=== PATIENT | female | born 2000 | race Two or more races ===

== ENCOUNTER 2025-03-19 09:58 | Inpatient (IN) | payer MEDICAID ==
[~2025-03-19] VITALS: Ht 162.6 cm; Wt 81.0 kg
--- NOTE | 2025-03-19 10:14 | ED.PDOC ---
History of Present Illness HPI Comments 24-year-old female with a history of alcohol dependence brought in by self complaining of alcohol withdrawal symptoms, characterized by shakiness, nausea and vomiting, associated with initially bright red, then brown emesis and epigastric pain. Patient states symptoms have been going on for the last 12 hours. Her last drink was around 1600 yesterday. She states typically she drinks a 5th of hard liquor daily, and has been doing so for the last 2 weeks. She denies any fever, diarrhea, urinary symptoms, or seizure. 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 Dry mucous membranes.) Neck: Full Range of Motion, Normal Inspection Respiratory: Lungs Clear, No Accessory Muscle Use, No Respiratory Distress, Normal Breath Sounds Cardiovascular: No Edema, No JVD, Tachycardia Breast Exam: Deferred Gastrointestinal: Epigastric, Soft, Tenderness Genitalia: Deferred Pelvic: Deferred Rectal: Deferred Extremities: Normal inspection, Normal range of motion, Non-tender, No pedal edema Neurologic: Alert (Oriented x4), Normal Affect, Normal Mood, Other (Ambulatory) Cerebellar Function: Tremor Reflexes: NOT DONE Skin: NOT DONE Lymphatic: NOT DONE Was a procedure done? Was a procedure done?: No Differential Dx Considerations may include: Alcohol withdrawal, electrolyte imbalance, dehydration/hypovolemia, gastritis, ulcer disease, pancreatitis, biliary tract disease, colitis, diverticular disease, UTI, among others X-Ray, Labs, Meds, VS Vital Signs Date Time Temp Pulse Resp B/P (MAP) Pulse Ox O2 Delivery O2 Flow Rate FiO2 03/19/25 15:00 85 16 136/79 (98) 98 03/19/25 13:15 85 18 99 Room Air 03/19/25 13:15 98.1 85 18 133/86 (102) 99 98.1 03/19/25 10:25 84 19 98 Room Air* 0 21 03/19/25 10:25 97.9 84 15 144/86 (105) 99 97.9 03/19/25 10:05 97.4 92 20 155/98 (117) 100 97.4 Lab Test 03/19/25 11:22 03/19/25 10:36 03/19/25 10:25 Range/Units Troponin I High Sensitivity < 3 L < 3 L </=34 ng/L Plasma/Serum Blood Alcohol 4.7 <10 mg/dL White Blood Count 7.2 4.4-10.8 10^3/uL Red Blood Count 4.09 4.0-5.20 10^6/uL Hemoglobin 13.6 12.2-16.2 g/dL Hematocrit 39.6 36.0-46.0 % Mean Corpuscular Volume 96.8 80.0-100.0 fL Mean Corpuscular Hemoglobin 33.2 H 28.0-32.0 pg Mean Corpuscular Hemoglobin Concent 34.3 32.0-36.0 g/dL Red Cell Distribution Width 15.9 H 11.8-14.3 % Platelet Count 313 140-450 10^3/uL Mean Platelet Volume 8.2 6.9-10.8 fL Neutrophils (%) (Auto) 81.5 H 37.0-80.0 % Lymphocytes (%) (Auto) 15.2 10.0-50.0 % Monocytes (%) (Auto) 2.7 0.0-12.0 % Eosinophils (%) (Auto) 0.1 0.0-7.0 % Basophils (%) (Auto) 0.5 0.0-2.0 % Neutrophils # (Auto) 5.9 1.6-8.6 10 ^3/uL Lymphocytes # (Auto) 1.1 0.4-5.4 10 ^3/uL Monocytes # (Auto) 0.2 0-1.3 10 ^3/uL Eosinophils # (Auto) 0 0-0.8 10 ^3/uL Basophils # (Auto) 0 0-0.2 10 ^3/uL Nucleated Red Blood Cells 0.0 % Sodium Level 140 136-145 mmol/L Potassium Level 3.5 3.5-5.1 mmol/L Chloride Level 103 98-107 mmol/L Carbon Dioxide Level 26 20-31 mmol/L Anion Gap 11 5-15 Blood Urea Nitrogen 9 9-23 mg/dL Creatinine 0.67 0.550-1.02 mg/dL Glomerular Filtration Rate Calc 124 >90 mL/min BUN/Creatinine Ratio 13.4 10.0-20.0 Serum Glucose 111 H 74-106 mg/dL Calcium Level 8.9 8.7-10.4 mg/dL Total Bilirubin 0.6 0.2-1.0 mg/dL Aspartate Amino Transferase (AST) 42 H 13-40 U/L Alanine Aminotransferase (ALT) 60 H 7-40 U/L Alkaline Phosphatase 64 46-116 U/L Total Protein 7.3 5.7-8.2 g/dL Albumin 4.8 3.2-4.8 g/dL Lipase 43 12-53 U/L Beta HCG, Quantitative 0.5 L 1.5-4.2 mIU/mL Urine Color Yellow Yellow Urine Clarity Turbid H Clear Urine pH 8.5 5.0-9.0 Urine Specific [place] 1.027 1.001-1.035 Urine Protein 2+ H Negative Urine Ketones Negative Negative Urine Blood 2+ H Negative /uL Urine Nitrite Negative Negative Urine Bilirubin Negative Negative Urine Urobilinogen Normal Negative mg/dL Urine Leukocyte Esterase 1+ Negative /uL Urine RBC 6 0 - 4 /hpf Urine Microscopic WBC 9 H 0-5 /HPF Urine Squamous Epithelial Cells Many <5 /hpf Urine Bacteria Few H None Seen /hpf Urine Mucus Few None Seen Urine Glucose Normal Normal mg/dL Urine Opiates Screen Neg NEGATIVE Urine Fentanyl Screen Neg NEGATIVE Urine Barbiturates Screen Neg NEGATIVE Urine Phencyclidine Screen Neg NEGATIVE Urine Amphetamines Screen Neg NEGATIVE Urine Benzodiazepines Screen Neg NEGATIVE Urine Cocaine Screen Neg NEGATIVE Urine Cannabinoids Screen Neg NEGATIVE Current Medications Medications (Trade) Dose Ordered Sig/Juan Ramon Route Start Time Stop Time Status Last Admin Sodium Chloride 2,000 ml @ 1,000 mls/hr Q2H ONCE IV 03/19/25 10:15 03/19/25 12:14 DC 03/19/25 10:44 Ondansetron HCl (Zofran) 4 mg ONCE ONCE IV 03/19/25 10:15 03/19/25 10:17 DC 03/19/25 10:43 Pantoprazole Sodium (Protonix) 40 mg ONCE ONCE IV 03/19/25 10:15 03/19/25 10:17 DC 03/19/25 10:43 Lorazepam (Ativan Inj) 1 mg ONCE ONCE IV 03/19/25 10:15 03/19/25 10:17 DC 03/19/25 10:43 Chlordiazepoxide HCl (Librium Capsule) 50 mg ONCE ONCE PO 03/19/25 10:15 03/19/25 10:17 DC 03/19/25 10:43 Ceftriaxone Sodium 50 ml @ 100 mls/hr ONCE ONCE IV 03/19/25 12:00 03/19/25 12:29 DC 03/19/25 12:09 PROCEDURE(s): ABPL - CT AB PEL WO CON-NO ORAL OR IV REASON: epig pain, hematemesis ORDER NUMBER(s): [id number], ACCESSION NUMBER(s): [id number] EXAM: CT Abdomen and Pelvis Without Intravenous Contrast CLINICAL INDICATION: epig pain, hematemesis TECHNIQUE: Axial computed tomography images of the abdomen and pelvis without intravenous contrast. This CT exam was performed using one or more of the following dose reduction techniques: automated exposure control, adjustment of the mA and/or kV according to patient size, and/or use of iterative reconstruction technique. CONTRAST: RADIATION DOSE: CTDIvol = 12.28 mGy, DLP = 642.7 mGy-cm COMPARISON: None FINDINGS: LUNG BASES: Unremarkable. No mass. No consolidation. ABDOMEN: LIVER: Fatty infiltration of the liver. GALLBLADDER AND BILE DUCTS: Unremarkable. No calcified stones. No ductal dilation. PANCREAS: Unremarkable. No ductal dilation. SPLEEN: Unremarkable. No splenomegaly. ADRENALS: Unremarkable. No mass. KIDNEYS AND URETERS: Unremarkable. No stones within either kidney. No hydronephrosis. STOMACH AND BOWEL: Unremarkable. No obstruction. No mucosal thickening. PELVIS: APPENDIX: Normal appendix. BLADDER: Unremarkable. No stones. REPRODUCTIVE: Unremarkable as visualized. ABDOMEN and PELVIS: INTRAPERITONEAL SPACE: Unremarkable. No free air. No significant fluid collection. BONES/JOINTS: No acute fracture. No dislocation. SOFT TISSUES: Umbilical hernia containing fat. VASCULATURE: Unremarkable. No abdominal aortic aneurysm. LYMPH NODES: Unremarkable. No enlarged lymph nodes. OTHER FINDINGS: . . IMPRESSION: 1. Normal appendix. 2. Umbilical hernia containing fat. 3. No obstructive uropathy. X-Ray, Labs, Meds, VS Comment 24-year-old female with a history of alcohol dependence presenting complaining of alcohol withdrawal symptoms, epigastric pain, bright red than dark brown emesis, associated with epigastric pain Vitals remarkable for hypertension and tachycardia Exam remarkable for tachycardia and tremors, epigastric tenderness Rhythm strip independently interpreted by me: Sinus tach, rate 110, no ectopy. CT abdomen and pelvis IMPRESSION: 1. Normal appendix. 2. Umbilical hernia containing fat. 3. No obstructive uropathy. CBC unremarkable, CMP remarkable for AST 42, ALT 60, lipase normal, UA abnormal consistent with possible UTI, hCG negative, alcohol and drug screen pending Patient treated with the following in the ED: 2 L 0.9 normal saline IV bolus, Zofran 4 mg IV, Protonix 40 mg IV, Ativan 2 mg IV, Librium 50 mg p.o., Rocephin 1 g IV On re-evaluation, symptoms improving. Vitals stable. No emesis in ED. Plan is to admit the patient for alcohol withdrawal and GI evaluation. Time of 1ST Reevaluation: 11:14 Reevaluation 1ST: Improved Patient Education/Counseling: Diagnosis, Treatment Family Education/Counseling: No Family Present Departure 1 Departure Time of Disposition: 11:55 Impression: Primary Impression: Alcohol withdrawal Qualified Codes: F10.939 - Alcohol use, unspecified with withdrawal, unspecified Additional Impressions: Hematemesis/vomiting blood Qualified Codes: K92.0 - Hematemesis UTI (urinary tract infection) Qualified Codes: N39.0 - Urinary tract infection, site not specified Disposition: ADMITTED INPATIENT Admit to: Tele Condition: Guarded Critical Care Note Critical Care Time?: No Stability Stability form required: No Heart Score Heart Score: Heart Score Response (Comments) Value History N/A 0 EKG N/A 0 Age N/A 0 Risk Factors N/A 0 Troponin N/A 0 Total 0 OLEG MCLEOD MD March 19, 2025 10:14
[2025-03-19 10:25] VITALS: PULSE 84; RESP 19; O2SAT 98
[2025-03-19] MEDS: chlordiazePOXIDE HCL 25 MG CAP PO ONE (10:43)
[2025-03-19] MEDS: LORazepam 2MG/ML-1ML VIAL IV ONE (10:43)
[2025-03-19] MEDS: PANTOPRAZOLE 40 MG/10 ML VIAL INJ IV ONE (10:43)
[2025-03-19] MEDS: ONDANSETRON HCL 4 MG/2 ML VIAL IV ONE (10:43)
[2025-03-19] MEDS: SODIUM CHLORIDE 0.9% 2,000 ML IV ONE (10:44)
[2025-03-19 11:05] LABS: Basophils # (auto) 0 10 ^3/uL (0-0.2); Basophils % (auto) 0.5 % (0.0-2.0); Eosinophils # (auto) 0 10 ^3/uL (0-0.8); Eosinophils % (auto) 0.1 % (0.0-7.0); Hematocrit 39.6 % (36.0-46.0); Hemoglobin 13.6 g/dL (12.2-16.2); Lymphocytes # (auto) 1.1 10 ^3/uL (0.4-5.4); Lymphocytes % (auto) 15.2 % (10.0-50.0); Mean Corpuscular Hemoglobin 33.2 pg (28.0-32.0); Mean Corpuscular Hgb Conc. 34.3 g/dL (32.0-36.0); Mean Corpuscular Volume 96.8 fL (80.0-100.0); Monocytes # (auto) 0.2 10 ^3/uL (0-1.3); Monocytes % (auto) 2.7 % (0.0-12.0); Neutrophils # (auto) 5.9 10 ^3/uL (1.6-8.6); Neutrophils % (auto) 81.5 % (37.0-80.0); Platelet Count (auto) 313 10^3/uL (140-450); Red Blood Cells 4.09 10^6/uL (4.0-5.20); Red Cell Distribution Width 15.9 % (11.8-14.3); White Blood Cell 7.2 10^3/uL (4.4-10.8)
[2025-03-19 11:22] LABS: Albumin 4.8 g/dL (3.2-4.8); Alkaline Phosphatase 64 U/L (46-116); Anion Gap 11 (5-15); BUN/Creatinine Ratio 13.4 (10.0-20.0); Bilirubin, Total 0.6 mg/dL (0.2-1.0); Calcium 8.9 mg/dL (8.7-10.4); Carbon Dioxide 26 mmol/L (20-31); Chloride 103 mmol/L (98-107); Lipase 43 U/L (12-53); Potassium 3.5 mmol/L (3.5-5.1); Sodium 140 mmol/L (136-145); Total Protein 7.3 g/dL (5.7-8.2)
[2025-03-19 11:23] LABS: Alanine Aminotransferase 60 U/L (7-40); Aspartate Aminotransferase 42 U/L (13-40); Blood Urea Nitrogen 9 mg/dL (9-23); Glucose 111 mg/dL (74-106)
[2025-03-19 11:30] LABS: Urine Bacteria FEW /hpf (None Seen); Urine Blood 2+ /uL (Negative); Urine Clarity Turbid (Clear); Urine Color Yellow (Yellow); Urine Mucus FEW (None Seen); Urine Protein, UAD 2+ (Negative); Urine Specific Gravity 1.027 (1.001-1.035); Urine Squamous Epithelial Cell MANY /hpf (<5); Urine Urobilinogen Normal (Negative); Urine WBC 9 /HPF (0-5); Urine pH 8.5 (5.0-9.0)
[2025-03-19] MEDS: cefTRIAXone 1GM/50ML D5W 50 ML IV ONE (12:09)
--- NOTE | 2025-03-19 12:18 | DVH ---
EXAM: CT Abdomen and Pelvis Without Intravenous Contrast CLINICAL INDICATION: epig pain, hematemesis TECHNIQUE: Axial computed tomography images of the abdomen and pelvis without intravenous contrast. This CT exam was performed using one or more of the following dose reduction techniques: automated exposure control, adjustment of the mA and/or kV according to patient size, and/or use of iterative r econstruction technique. CONTRAST: RADIATION DOSE: CTDIvol = 12.28 mGy, DLP = 642.7 mGy-cm COMPARISON: None FINDINGS: LUNG BASES: Unremarkable. No mass. No consolidation. ABDOMEN: LIVER: Fatty infiltration of the liver. GALLBLADDER AND BILE DUCTS: Unremarkable. No calcified stones. No ductal dilation. PANCREAS: Unremarkable. No ductal dilation. SPLEEN: Unremarkable. No splenomegaly. ADRENALS: Unremarkable. No mass. KIDNEYS AND URETERS: Unremarkable. No stones within either kidney. No hydronephrosis. STOMACH AND BOWEL: Unremarkable. No obstruction. No mucosal thickening. PELVIS: APPENDIX: Normal appendix. BLADDER: Unremarkable. No stones. REPRODUCTIVE: Unremarkable as visualized. ABDOMEN and PELVIS: INTRAPERITONEAL SPACE: Unremarkable. No free air. No significant fluid collection. BONES/JOINTS: No acute fracture. No dislocation. SOFT TISSUES: Umbilical hernia containing fat. VASCULATURE: Unremarkable. No abdominal aortic aneurysm. LYMPH NODES: Unremarkable. No enlarged lymph nodes. OTHER FINDINGS: . . IMPRESSION: 1. Normal appendix. 2. Umbilical hernia containing fat. 3. No obstructive uropathy.
[2025-03-19 12:44] LABS: Cannabinoid Screen, Urine Neg (NEGATIVE)
[2025-03-19 12:45] LABS: Amphetamine Screen, Urine Neg (NEGATIVE); Barbiturate Scree,Urine Neg (NEGATIVE); Benzodiazephine Screen, Urine Neg (NEGATIVE); Cocaine Screen, Urine Neg (NEGATIVE); Opiate Scree,Urine Neg (NEGATIVE); Phencyclidine Screen, Urine Neg (NEGATIVE)
--- NOTE | 2025-03-19 14:01 | DVHHP2 ---
History of Present Illness Reason for Visit: etoh abuse History of Present Illness 24 yr old female pmh etoh use and tonsillectomy cc here for etoh dependence, etoh withdrawal, symptoms, patient has some shakiness nausea vomiting she had some bright blood in her emesis she also complain of epigastric pain. Patient states she is drinking pretty heavy daily her last drink was yesterday around 4:00 p.m.. She states she takes a fifth of liquor daily. She states the pain in her epigastric areas like a burning pain no chest pain no shortness with the breath she denies any diarrhea no chest pain no shortness with the breath when evaluating patient's labs and imaging from ED ceftriaxone was given Librium Ativan Protonix Zofran normal saline CBC was unremarkable glucose was 111 AST was 42 ALT was 60 troponin was negative beta quant was negative urine drug screen was negative alcohol level was negative UA with a few bacteria and blood with these findings we will admit for alcohol withdrawals Past Medical History see hpi above Past Surgical History see hpi above Family History Reviewed, non-contributory to the management of this case. Past Social History last drink completed yesterday at 1600, denies drug use or smoking Review of Systems Constitutional: No: Fever, Chills, Sweats, Weakness, Malaise, Other Eyes: No: Pain, Vision change, Conjunctivae inflammation, Eyelid inflammation, Other, Redness ENT: No: Ear pain, Ear discharge, Nose pain, Nose discharge, Nose congestion, Mouth pain, Mouth swelling, Throat pain, Throat swelling, Other Respiratory: No: Cough, Dry, Shortness of breath, SOB with excertion, Wheezing, Hemoptysis, Pleuritic Pain, Sputum, Wheezing, Other Cardiovascular: No: Chest Pain, Palpitations, Orthopnea, Paroxysmal Noc. Dyspnea, Edema, Lt Headedness, Other Gastrointestinal: No: Nausea, Vomiting, Abdominal Pain, Diarrhea, Constipation, Melena, Hematochezia, Other Genitourinary: No Dysuria, No Frequency, No Incontinence, No Hematuria, No Retention, No Other Musculoskeletal: No: other, neck pain, shoulder pain, arm pain, back pain, hand pain, leg pain, foot pain Skin: No: Rash, Lesions, Jaundice, Bruising, Other Neurological: No: Weakness, Numbness, Incoordination, Change in speech, Confusion, Seizures, Other Allergies: Coded Allergies: NO KNOWN ALLERGIES (Unverified , 03/19/25) Exam Vital Signs Vital Signs Date Time Temp Pulse Resp B/P (MAP) Pulse Ox O2 Delivery O2 Flow Rate FiO2 03/19/25 13:15 85 18 99 Room Air 03/19/25 13:15 98.1 133/86 (102) 98.1 03/19/25 10:25 0 21 General Appearance: Alert, Oriented X3, Cooperative, No acute distress HEENT: Atraumatic, PERRLA, EOMI, Mucous membr. moist/pink Respiratory: Clear to auscultation, Normal air movement Cardiovascular: Regular rate, Normal S1, Normal S2, No murmurs Abdominal: Normal bowel sounds, Soft, No tenderness, No hepatospenomegaly Extremities: No clubbing, No cyanosis, No edema, Normal pulses, No tenderness/swelling Skin: No rashes, No breakdown, No significant lesion Neuro: Normal gait, Normal speech, Strength at 5/5 X4 ext, Normal tone, Sensation intact, Cranial nerves 3-12 NL Psych/Mental Status: Mental status NL, Mood NL Labs/Xrays CT scan of the abdomen pelvis unremarkable just shows umbilical fat I reviewed labs, imaging CT scan abdomen pelvis, EKG and all diagnostic studies on this patient from ED records and the medical chart Labs Test 03/19/25 11:22 03/19/25 10:36 03/19/25 10:25 Range/Units Troponin I High Sensitivity < 3 L </=34 ng/L Plasma/Serum Blood Alcohol 4.7 <10 mg/dL White Blood Count 7.2 4.4-10.8 10^3/uL Red Blood Count 4.09 4.0-5.20 10^6/uL Hemoglobin 13.6 12.2-16.2 g/dL Hematocrit 39.6 36.0-46.0 % Mean Corpuscular Volume 96.8 80.0-100.0 fL Mean Corpuscular Hemoglobin 33.2 H 28.0-32.0 pg Mean Corpuscular Hemoglobin Concent 34.3 32.0-36.0 g/dL Red Cell Distribution Width 15.9 H 11.8-14.3 % Platelet Count 313 140-450 10^3/uL Mean Platelet Volume 8.2 6.9-10.8 fL Neutrophils (%) (Auto) 81.5 H 37.0-80.0 % Lymphocytes (%) (Auto) 15.2 10.0-50.0 % Monocytes (%) (Auto) 2.7 0.0-12.0 % Eosinophils (%) (Auto) 0.1 0.0-7.0 % Basophils (%) (Auto) 0.5 0.0-2.0 % Neutrophils # (Auto) 5.9 1.6-8.6 10 ^3/uL Lymphocytes # (Auto) 1.1 0.4-5.4 10 ^3/uL Monocytes # (Auto) 0.2 0-1.3 10 ^3/uL Eosinophils # (Auto) 0 0-0.8 10 ^3/uL Basophils # (Auto) 0 0-0.2 10 ^3/uL Nucleated Red Blood Cells 0.0 % Sodium Level 140 136-145 mmol/L Potassium Level 3.5 3.5-5.1 mmol/L Chloride Level 103 98-107 mmol/L Carbon Dioxide Level 26 20-31 mmol/L Anion Gap 11 5-15 Blood Urea Nitrogen 9 9-23 mg/dL Creatinine 0.67 0.550-1.02 mg/dL Glomerular Filtration Rate Calc 124 >90 mL/min BUN/Creatinine Ratio 13.4 10.0-20.0 Serum Glucose 111 H 74-106 mg/dL Calcium Level 8.9 8.7-10.4 mg/dL Total Bilirubin 0.6 0.2-1.0 mg/dL Aspartate Amino Transferase (AST) 42 H 13-40 U/L Alanine Aminotransferase (ALT) 60 H 7-40 U/L Alkaline Phosphatase 64 46-116 U/L Total Protein 7.3 5.7-8.2 g/dL Albumin 4.8 3.2-4.8 g/dL Lipase 43 12-53 U/L Beta HCG, Quantitative 0.5 L 1.5-4.2 mIU/mL Urine Color Yellow Yellow Urine Clarity Turbid H Clear Urine pH 8.5 5.0-9.0 Urine Specific [place] 1.027 1.001-1.035 Urine Protein 2+ H Negative Urine Ketones Negative Negative Urine Blood 2+ H Negative /uL Urine Nitrite Negative Negative Urine Bilirubin Negative Negative Urine Urobilinogen Normal Negative mg/dL Urine Leukocyte Esterase 1+ Negative /uL Urine RBC 6 0 - 4 /hpf Urine Microscopic WBC 9 H 0-5 /HPF Urine Squamous Epithelial Cells Many <5 /hpf Urine Bacteria Few H None Seen /hpf Urine Mucus Few None Seen Urine Glucose Normal Normal mg/dL Urine Opiates Screen Neg NEGATIVE Urine Fentanyl Screen Neg NEGATIVE Urine Barbiturates Screen Neg NEGATIVE Urine Phencyclidine Screen Neg NEGATIVE Urine Amphetamines Screen Neg NEGATIVE Urine Benzodiazepines Screen Neg NEGATIVE Urine Cocaine Screen Neg NEGATIVE Urine Cannabinoids Screen Neg NEGATIVE Assessment/Plan Assessment/Plan acute etoh withdrawal last use yesterday at 1600 ordered Librium taper ordered Ativan as needed ordered Seizure precautions monitor for etoh withdrawal etoh level negative vit b 12 level fu results ordered banana bag acute upper gi bleed ordered protonix ordered npo for now ordered ivf ordered gi consult fu recs acute Intractable abdominal pain epigastric pain ct scan abd pelvis umbilcial hernia otherwise unremarkable ordered Protonix morphine Zofran N.p.o. 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
[2025-03-19] MEDS ORDERED: MORPHINE SULFATE INJ 2 MG/ml SYRG IV PRN (15:15)
[2025-03-19] MEDS ORDERED: DOCUSATE SOD 100 MG CAP PO PRN (15:15)
[2025-03-19] MEDS ORDERED: ONDANSETRON HCL 4 MG/2 ML VIAL IV PRN (15:15)
[2025-03-19] MEDS ORDERED: NITROGLYCERIN 0.4 MG SL TAB SL PRN (15:15)
[2025-03-19] MEDS ORDERED: LORazepam 2MG/ML-1ML VIAL IV PRN (15:15)
[2025-03-19] MEDS: SODIUM CHLORIDE 0.9% 1,000 ML IV SCH (16:50)
[2025-03-19] MEDS: chlordiazePOXIDE HCL 25 MG CAP PO SCH (16:51)
[2025-03-19 18:05] VITALS: BP 124/76; PULSE 101; RESP 18; TEMP 97.8; O2SAT 97
[2025-03-19 18:20] VITALS: BP 129/85; PULSE 103; RESP 17; TEMP 98.9; O2SAT 99
[2025-03-19 20:00] VITALS: PULSE 83; RESP 19; O2SAT 97
[2025-03-19 21:00] VITALS: BP 128/77; PULSE 83; RESP 19; TEMP 97.8; O2SAT 97
[2025-03-20 01:00] VITALS: BP 149/92; PULSE 74; RESP 20; TEMP 97.7; O2SAT 99
[2025-03-20 05:00] VITALS: BP 131/84; PULSE 69; RESP 18; TEMP 97.2; O2SAT 99
[2025-03-20 06:23] LABS: Basophils # (auto) 0 10 ^3/uL (0-0.2); Basophils % (auto) 0.4 % (0.0-2.0); Eosinophils # (auto) 0.1 10 ^3/uL (0-0.8); Eosinophils % (auto) 0.9 % (0.0-7.0); Hemoglobin 12.8 g/dL (12.2-16.2); Lymphocytes # (auto) 1.5 10 ^3/uL (0.4-5.4); Lymphocytes % (auto) 24.3 % (10.0-50.0); Mean Corpuscular Hgb Conc. 33.7 g/dL (32.0-36.0); Mean Corpuscular Volume 98.1 fL (80.0-100.0); Monocytes # (auto) 0.3 10 ^3/uL (0-1.3); Monocytes % (auto) 5.5 % (0.0-12.0); Neutrophils # (auto) 4.3 10 ^3/uL (1.6-8.6); Neutrophils % (auto) 68.9 % (37.0-80.0); Nucleated Red Blood Cells % 0.1 %; Platelet Count (auto) 268 10^3/uL (140-450); Red Blood Cells 3.87 10^6/uL (4.0-5.20); Red Cell Distribution Width 15.5 % (11.8-14.3); White Blood Cell 6.3 10^3/uL (4.4-10.8)
[2025-03-20 06:47] LABS: Alkaline Phosphatase 55 U/L (46-116); Anion Gap 8 (5-15); Calcium 9.3 mg/dL (8.7-10.4); Carbon Dioxide 25 mmol/L (20-31); Chloride 107 mmol/L (98-107); Glucose 96 mg/dL (74-106); Potassium 3.9 mmol/L (3.5-5.1); Sodium 140 mmol/L (136-145); Total Protein 6.1 g/dL (5.7-8.2)
[2025-03-20 06:48] LABS: Albumin 3.9 g/dL (3.2-4.8); Bilirubin, Total 0.8 mg/dL (0.2-1.0)
[2025-03-20 06:56] LABS: Alanine Aminotransferase 54 U/L (7-40); Aspartate Aminotransferase 42 U/L (13-40); BUN/Creatinine Ratio 7.8 (10.0-20.0); Blood Urea Nitrogen < 5 mg/dL (9-23)
[2025-03-20] MEDS ORDERED: cefTRIAXone 1GM/50ML D5W 50 ML IV SCH (09:00)
[2025-03-20] MEDS ORDERED: chlordiazePOXIDE HCL 25 MG CAP PO SCH (10:00)
[2025-03-21] MEDS ORDERED: chlordiazePOXIDE HCL 25 MG CAP PO SCH (10:00)
[2025-03-22] MEDS ORDERED: chlordiazePOXIDE HCL 25 MG CAP PO SCH (07:00)
== END 2025-03-20 08:58 | disposition left against medical advice (07) | DRG 253 ==
LOC: ER 09:58 → EDBD 09:58 → OVERFLOW 15:14 → EAST 15:20
PROVIDERS: ADMIT Nurse Practitioner Family; ATTEND Nurse Practitioner Family
DX: K92.2 Gastrointestinal hemorrhage, unspecified (principal); E86.0 Dehydration; K92.0 Hematemesis; F10.239 Alcohol dependence with withdrawal, unspecified; N39.0 Urinary tract infection, site not specified; K42.9 Umbilical hernia without obstruction or gangrene; R74.01 Elevation of levels of liver transaminase levels; Z53.29 Procedure and treatment not carried out because of patient's decision for other reasons
CPT/HCPCS: 36415; 74176; 80053; 80307; 80320; 81001; 83690; 84484; 84702; 85025; 96374; 96375; G0378; J2405; J2470